=== PATIENT | female | born 1940 | race Asian ===

== ENCOUNTER → 2023-09-11 07:18 | Outpatient (REF) | payer MEDICARE, BC, SELFPAY | LOC: DHCBS MAIN 07:18 | PROVIDERS: ATTENDING PHYSICIAN Internal Medicine Cardiovascular Disease; FAMILY PHYSICIAN Family Medicine | DX: I35.0 Nonrheumatic aortic (valve) stenosis (principal) | CPT/HCPCS: 93306 ==

== ENCOUNTER → 2024-04-06 13:47 | Outpatient (REF) | payer MEDICARE, BC, SELFPAY | LOC: RCS 13:47 | PROVIDERS: ATTENDING PHYSICIAN Internal Medicine Cardiovascular Disease; FAMILY PHYSICIAN Family Medicine | DX: I35.0 Nonrheumatic aortic (valve) stenosis (principal) | CPT/HCPCS: 93306 ==

== ENCOUNTER 2025-02-15 17:33 | Emergency (ER) | payer MEDICARE, BC, SELFPAY ==
[2025-02-15 17:42] VITALS: BP 182/95
[2025-02-15 18:11] LABS: Hematocrit 42.0 % (37.0-47.0); Hemoglobin 13.6 g/dL (12.0-16.0); Mean Corp Hgb Conc. 32.4 g/dL (33.0-37.0); Mean Corpuscular Volume 88.1 fL (81.0-99.0); Nucleated Red Blood Cells % 0 %; Platelet Count 210 10^3/uL (130-400); Red Cell Dist. Width 13.4 % (11.5-14.5)
[2025-02-15 18:38] LABS: ALT (SGPT) 27 U/L (0-35); AST (SGOT) 46 U/L (14-36); Albumin 4.8 g/dl (3.5-5.0); Alkaline Phosphatase 96 U/L (38-126); Blood Urea Nitrogen 15 mg/dl (7-17); Calcium 9.0 mg/dl (8.4-10.2); Carbon Dioxide 28 mmol/L (22-30); Chloride 101 mmol/L (98-107); Glucose 97 mg/dl (70-99); Potassium 4.7 mmol/L (3.5-5.1); Sodium 134 mmol/L (135-145); Total Protein 8.3 g/dl (6.3-8.2); eGFR > 60.00
[2025-02-15 18:49] LABS: Troponin I 0.018 ng/ml
[2025-02-15] MEDS: TYLENOL 650 MG PO (21:08)
--- NOTE | 2025-02-15 21:11 | ED.GENMED ---
History of Present Illness
General
Chief Complaint: Heart Rate Problem
Time Seen by Provider: 02/15/25 19:44
History of Present Illness
History of Present Illness:
84-year-old female with history of hypertension presenting to the emergency department for palpitations. Patient reports few hours prior to arrival she was making dinner. She sat down and then started to have palpitations. She felt generally
unwell, checked her blood pressure and noted that it was elevated. She took her metoprolol and came to the hospital. Denies any significant chest pain. Denies any difficulty breathing. Denies fall or syncopal episode. Denies any dizziness, did
report some lightheadedness. Also reports some posterior headache, however notes that she has frequent headaches in the past year. Rates the headache a 3 out of 10. Denies any weakness or numbness to her extremities. Daughter does note that the
patient's is having a cardiac catheterization tomorrow so she believes that this could be causing some anxiety. Patient denies any additional acute medical complaints
Past History
Past History
ED Past Medical History: HTN, Hypercholesterolemia and Other (tia, lung ca)
ED Past Surgical History: Other (lobectomy)
Social History
Tobacco: Non-smoker
Alcohol: None
Drug: None
Personal:
Living: with family
Family History
Family History: Other (She has a brother with prostate cancer)
Phy Exam
Physical Exam
Physical Exam:
General: Well-appearing, no clinical signs of dehydration, nontoxic and in no acute distress
HEENT: protecting airway, pupils equal and reactive
Neck: appears supple
CV: Normal heart rate, regular rhythm
Resp: No accessory muscle use, no increased work of breathing, lungs clear to auscultation bilaterally
Abd: Soft and non-distended, no tenderness to palpation
Extremities: No deformities, no swelling
Neuro: alert, no focal neurologic deficit
: deferred
Rectal: deferred
Psych: Normal affect
Skin: Intact
Course
Orders/Labs/Results
Orders:
Orders
02/15/25 17:35
ECG [Electrocardiogram (*1)] Urgent
Reason for Study: Bradycardia / Tachycardia
EKG- Treatment ONCE
02/15/25 17:59
Complete Blood Count/With Diff Urgent
Comprehensive Metabolic Panel Urgent
Troponin I Urgent
02/15/25 20:18
Acetaminophen [Tylenol] 650 mg PO NOW STA
02/15/25 21:16
Troponin I Routine
02/15/25 22:06
Diphenhydramine [Benadryl] 25 mg PO NOW STA
Abnormal Lab Results
02/15/25
17:59
MCHC 32.4 L g/dL
(33.0-37.0)
Sodium 134 L mmol/L
(135-145)
AST 46 H U/L
(14-36)
Total Protein 8.3 H g/dl
(6.3-8.2)
02/15/25 17:59
02/15/25 17:59
Vital Signs
Initial and Last Documented VS:
Initial Vital Signs
Temp Pulse Resp BP Pulse Ox
98.3 F 66 20 182/95 98
02/15/25 17:42 02/15/25 17:42 02/15/25 17:42 02/15/25 17:42 02/15/25 17:42
Last Documented Vital Signs
Temp Pulse Resp BP Pulse Ox
98.3 F 54 17 153/73 98
02/15/25 17:42 02/15/25 21:32 02/15/25 21:32 02/15/25 21:32 02/15/25 21:32
MDM/Problems Addressed
MDM/Problems Addressed:
84-year-old female with history of hypertension presenting for episode of generally feeling unwell with palpitations and some tightness in the chest, with elevated blood pressure. Blood pressure on arrival is elevated, however improved without
intervention.
On exam patient is resting comfortably, no acute distress or discomfort. EKG obtained on arrival, nonischemic. Unremarkable cardiac and pulmonary exam, no increased work of breathing. Overall low suspicion for hypertensive urgency or emergency.
No arrhythmia, or again any signs of ischemia on EKG with lower suspicion for ACS. No focal neurologic deficits without concern for central neurologic process. Screening laboratory analysis sent prior to my assessment, unremarkable. Do suspect
possible component of anxiety, daughter notes stress of her father have a cardiac catheterization tomorrow. Will send second troponin, continue to monitor, repeat EKG.
22:00 - Second troponin within normal limits, repeat EKG is unchanged and blood pressure remained stable. At this time patient remains hemodynamically stable, feel stable for discharge with close and will follow-up with primary care doctor and
prescribing doctor for her blood pressure medications. Return precautions discussed and patient verbalized understanding
*Pulse Oximetry
SaO2: 98
Oxygen Mode of Delivery: Room air
Patient hypoxic: no
*EKG
Interpreted by ED Provider?: Yes
EKG Intrepretation Date: 02/15/25
EKG Intrepretation Time: 21:15
Interpretation: normal
Comparison EKG: no changes (08/18/20)
Heart Rate: 68
Rate: normal
Rhythm: sinus
Alden: normal axis
Interval: normal interval
Ischemia: no ischemia
*Critical Care Note
Total Time (30-74mins, 75-104mins- exclusive of procedures): Not Applicable
ED Attending Note
-
Portions of this chart may have been created with voice recognition software.� Occasional wrong word or��sound alike� substitutions may have occurred due to the inherent limitations of voice recognition software.
Discharge Plan
Departure
Patient Disposition: Home (Routine Discharge)
Date of Disposition: 02/15/25
Time of Disposition: 22:07
Patient with high blood pressure during this ER visit?: Yes
Condition: Good
Discharge Problem:
Palpitations, Hypertension
Instructions: Palpitations (DC), BLOOD PRESSURE
Prescriptions:
No Action
vitamin B complex [B-Complex] 1 TAB tablet
1 tab PO DAILY
salmon oil-omega-3 fatty acids 500 MG capsule
1 cap PO DAILY
calcium carbonate [Oyster Shell Calcium 500] 500 MG tablet
500 mg PO DAILY
esomeprazole magnesium [Nexium] 40 MG capsule,delayed release(DR/EC)
40 mg PO DAILYPRN PRN (Reason: indigestion/heart burn)
cholecalciferol (vitamin D3) 1,000 UNITS tablet
1,000 units PO DAILY
multivitamin with folic acid [Tab-A-Tr] 1 TABLET tablet
1 tab PO DAILY
vit C,P-Ry-yrbyr-lutein-zeaxan [PreserVision AREDS-2] 1 EACH capsule
1 ea PO DAILY
Losartan Tab
25 mg PO DAILY
ascorbic acid (vitamin C) [Vitamin C] 500 MG tablet
1,000 mg PO DAILY
lysine HCl 1,000 MG tablet
1,000 mg PO DAILY
atorvastatin [Lipitor] 10 MG tablet
10 mg PO DAILY
amlodipine 5 MG tablet
5 mg PO DAILY
metoprolol succinate 25 MG tablet extended release 24 hr
25 mg PO DAILY Qty: 30 0RF
Referrals:
Kirit Arnett DO [Family Provider, Family Practice]
Activity Restrictions/Additional Instructions:
You were seen in the emergency department for high blood pressure and palpitations
You were found to have reassuring EKG, laboratory analysis, vital signs with improvement of your blood pressure
Please follow-up closely with your primary care physician.
Return to the emergency department for any worsening of your symptoms, or any development of chest pain, difficulty breathing, abdominal pain with persistent vomiting and inability to tolerate food or liquid by mouth (concern for dehydration),
weakness, headache or confusion, fever greater than 100.4, or any additional symptoms that are concerning to you.
Thank you for choosing [facility].
Interventions
Interventions:
*Risk Screen - Suicide Last Done: 02/15/25 17:42
*Neglect/Abuse Screening Last Done: 02/15/25 17:42
ED- Cardiac Assessment Last Done: 02/15/25 21:27
ED- Pulmonary Assessment Last Done: 02/15/25 21:27
Discharge Date and Time
Print Language: AMHARIC
[2025-02-15 21:32] VITALS: BP 153/73
[2025-02-15 21:50] LABS: Troponin I 0.017 ng/ml
[2025-02-15 22:00] VITALS: BP 152/85
[2025-02-15 22:02] VITALS: BP 166/84
[2025-02-15] MEDS: BENADRYL 25 MG PO (22:12)
[2025-02-15 22:48] VITALS: BP 166/84
== END 2025-02-15 22:50 | disposition home or self-care (01) ==
LOC: EMR 17:33
PROVIDERS: Emergency Medicine; EMERGENCY PHYSICIAN Student in an Organized Health Care Education/Training Program; FAMILY PHYSICIAN Family Medicine; REFERRING PHYSICIAN Internal Medicine Cardiovascular Disease
DX: R00.2 Palpitations (principal); I10 Essential (primary) hypertension; E78.00 Pure hypercholesterolemia, unspecified; Z85.118 Personal history of other malignant neoplasm of bronchus and lung; Z86.73 Personal history of transient ischemic attack (TIA), and cerebral infarction without residual deficits
CPT/HCPCS: 99284; 80053; 84484; 85025; 93005

== ENCOUNTER → 2025-02-17 13:08 | Outpatient (REF) | payer MEDICARE, BC, SELFPAY | LOC: HWRCS 13:08 | PROVIDERS: ATTENDING PHYSICIAN Internal Medicine Cardiovascular Disease; FAMILY PHYSICIAN Family Medicine | DX: I35.0 Nonrheumatic aortic (valve) stenosis (principal); R00.2 Palpitations | CPT/HCPCS: 93306 ==

== ENCOUNTER 2025-02-19 00:28 | Emergency (ER) | payer MEDICARE, BC, SELFPAY ==
[2025-02-19 00:30] VITALS: BP 188/96
[2025-02-19 00:47] VITALS: BP 154/73
[2025-02-19 00:56] VITALS: BMI 20.1
[2025-02-19 01:00] VITALS: BP 160/74
[2025-02-19 02:27] VITALS: BP 131/67
[2025-02-19 03:00] VITALS: BP 127/63
--- NOTE | 2025-02-19 03:08 | ED.GENMED ---
History of Present Illness
<Sue Hurst MD, Resident - Last Filed: 02/19/25 06:04>
General
Chief Complaint: Heart Rate Problem
Source: patient
Time Seen by Provider: 02/19/25 03:07
History of Present Illness
History of Present Illness:
Patient is an 84-year-old woman who presents to the emergency department with complaints of irregular heartbeat since the evening. She was in her normal state of health when she suddenly started to have tenderness right before bed. She was in the
bathroom finishing brushing her teeth manage she went to her bed she started to feel 'weird.' She has a history of hypertension, hyperlipidemia, GERD, lung cancer and takes metoprolol, amlodipine, and losartan. She had her attempt to rate
her blood pressure with a home blood pressure cuff but unfortunately the blood pressure cuff did not work and there was no reading able to be obtained. Unfortunately, this further worried the patient and she felt that she may be having an acute
sewed of PE which prompted her to come to the emergency department. Her episode of heart rate lasted less than a minute or so and did not continue. There was no shortness of breath or chest pain during the irregular heartbeat. patient does not
have any nausea diarrhea or vomiting. Shortness of breath, chest tightness or patient's urinary and bowel habits are unchanged from her baseline. she took an extra dose of her 25 mg of metoprolol as she felt that her heart was racing and that she
believed her body would feel better after taking it.
Past History
<Sue Hurst MD, Resident - Last Filed: 02/19/25 06:04>
Past History
ED Past Medical History: HTN, Hypercholesterolemia and Other (tia, lung ca)
ED Past Surgical History: Other (lobectomy)
Social History
Tobacco: Non-smoker
Alcohol: None
Drug: None
Personal:
Living: with family
Family History
Family History: Other (She has a brother with prostate cancer)
Review of Systems
<Sue Hurst MD, Resident - Last Filed: 02/19/25 06:04>
Review of Systems
Constitutional: Reports other ('feels weird')
EENT: Reports no symptoms
Respiratory: Reports no symptoms
Cardiac: Reports palpitations
ABD/GI: Reports no symptoms
: Reports no symptoms
Musculoskeletal: Reports no symptoms
Skin: Reports no symptoms
Neurological: Reports no symptoms
Endocrine: Reports no symptoms
Hematologic/Lymphatic: Reports no symptoms
Psychiatric: Reports no symptoms
Phy Exam
<Sue Hurst MD, Resident - Last Filed: 02/19/25 06:04>
General Physical Exam
General Presentation: well appearing and no apparent distress
General age: appears stated age
General Skin: warm and dry
General Habitus: normal
General Mental: alert
Cardiovascular Exam
Cardiovascular Exam: regular rate/rhythm, no edema, no gallop, no JVD, no murmur, normal peripheral pulses and bradycardia
Pulmonary Exam
Pulmonary Exam: lungs clear, no respiratory distress, no rales, chest non tender, no crackles, no rhonchi, no stridor, no wheezing and no cough
Course
<Sue Hurst MD, Resident - Last Filed: 02/19/25 06:04>
Orders/Labs/Results
Orders:
Orders
02/19/25 00:32
ECG [Electrocardiogram (*1)] Urgent
Reason for Study: Palpitations
02/19/25 00:33
EKG- Treatment ONCE
02/19/25 03:58
Discharge Patient As Directed
Month Pneumococcal vaccine administered: September
Year Pneumococcal vaccine administered: 2011
Month/Year vaccine administered for [id number] flu season: February 2020
Vital Signs
Initial and Last Documented VS:
Initial Vital Signs
Temp Pulse Resp BP Pulse Ox
97.8 F 72 20 188/96 96
02/19/25 00:30 02/19/25 00:30 02/19/25 00:30 02/19/25 00:30 02/19/25 00:30
Last Documented Vital Signs
Temp Pulse Resp BP Pulse Ox
97.8 F 52 13 127/63 98
02/19/25 00:30 02/19/25 03:45 02/19/25 03:45 02/19/25 03:00 02/19/25 03:45
<Eve Lehman DO - Last Filed: 02/19/25 05:25>
Orders/Labs/Results
Orders:
Orders
02/19/25 00:32
ECG [Electrocardiogram (*1)] Urgent
Reason for Study: Palpitations
02/19/25 00:33
EKG- Treatment ONCE
02/19/25 03:58
Discharge Patient As Directed
Month Pneumococcal vaccine administered: September
Year Pneumococcal vaccine administered: 2011
Month/Year vaccine administered for [id number] flu season: February 2020
Vital Signs
Initial and Last Documented VS:
Initial Vital Signs
Temp Pulse Resp BP Pulse Ox
97.8 F 72 20 188/96 96
02/19/25 00:30 02/19/25 00:30 02/19/25 00:30 02/19/25 00:30 02/19/25 00:30
Last Documented Vital Signs
Temp Pulse Resp BP Pulse Ox
97.8 F 52 13 127/63 98
02/19/25 00:30 02/19/25 03:45 02/19/25 03:45 02/19/25 03:00 02/19/25 03:45
<Sue Hurst MD, Resident - Last Filed: 02/19/25 06:04>
*Pulse Oximetry
SaO2: 98
Oxygen Mode of Delivery: Room air
Patient hypoxic: no
*Critical Care Note
Total Time (30-74mins, 75-104mins- exclusive of procedures): 60
<Sue Hurst MD, Resident - Last Filed: 02/19/25 06:04>
Update Note
Update Note:
Problem List:
Bradycardia
'feels funny'
palpitations
Plan:
monitor and observe
EKG
chart review
Differential Diagnoses:
atrial fibrillation/flutter
hypertension
tachycardia
inappropriate self dosing of medication
anxiety
Radiology: not applicable
EKG: normal sinus rhythm, possible left atrial enlargement, borderline EKG, no significant change found from prior EKG
Labs: not applicable
Updates:
Patient is bradycardic with a heart rate in the 50s likely secondary to inappropriate metoprolol self dosage. Talked to patient about avoiding taking medications outside of instructed dosages.
discussed how sensations of atrial fibrillation/palpitations and education was provided at the bedside
recommend patient gets BP cuff checked at primary care provider
patient remained on telemetry during her stay in the emergency department and was sinus rhythm throughout. Patient remains at baseline
patient would like to be discharged at the present time. There are no barriers that would impede the patient from being safely discharged from the emergency department
ED Attending Note
<Sue Hurst MD, Resident - Last Filed: 02/19/25 06:04>
-
Portions of this chart may have been created with voice recognition software.� Occasional wrong word or��sound alike� substitutions may have occurred due to the inherent limitations of voice recognition software.
<Eve Lehman DO - Last Filed: 02/19/25 05:25>
ED Attending Note
Patient seen and examined by attending physician: Yes
I performed a history and physical exam of patient and discussed management with resident, I reviewed resident's note and agree with documented findings and plan of care.: Yes
ED Attending Note:
84-year-old woman who resides at home with her . She is history of hypertension, hyperlipidemia, GERD, remote history of lung cancer status post right lower lobe lobectomy, history of asthma. She presents with complaints of palpitations
feeling that her heart was beating somewhat rapidly tonight and overall not feeling well. Her attempted to take her blood pressure but they are automatic cuff was malfunctioning.
Thus she presents to the ED for further evaluation. Feeling improved since arrival to the ED.
Very similar complaint noted just a few days ago where she underwent unremarkable ED evaluation including unremarkable laboratory studies, unremarkable/negative serial troponins, unremarkable EKG and firer low pressure showing no evidence of arrhythmia.
Prior records revealed similar ED visits with similar complaints with unremarkable evaluation.
She does follow with cable tester, Dr. Conrad and is maintained on metoprolol 25 mg twice daily. Recent visit with Dr. Conrad was just earlier this week.
With onset of palpitations tonight she took an extra dose of metoprolol. She denies dizziness nor lightheadedness.
84-year-old woman appears her stated age, bright and alert, pleasant, appears in no acute distress. is accompanying.
Heart is regular rate and rhythm. No murmur no rub.
Lungs are clear to auscultation. Respirations are easy nonlabored.
EKG shows normal sinus rhythm, normal axis, normal intervals, no acute ST-T wave abnormalities. Similar and unchanged from previous EKG February 15.
We have continued firer low pressure showing normal sinus rhythm, now with mild sinus bradycardia but again no arrhythmia. She remains hemodynamically stable.
With recent visit with unremarkable labs, overall unremarkable EKG as well as firer low pressure, no indication to repeat laboratory studies.
Recommend she continue her current dose of metoprolol but avoid taking additional doses as this is caused an element of bradycardia however she does remain normotensive.
Encourage prompt follow-up with her cable tester for recheck.
Discharge Plan
Departure
Patient Disposition: Home (Routine Discharge)
Date of Disposition: 02/19/25
Time of Disposition: 03:58
Patient with high blood pressure during this ER visit?: Yes
Discharge Problem:
Palpitations
Instructions: Palpitations (DC), BLOOD PRESSURE
Prescriptions:
No Action
vitamin B complex [B-Complex] 1 TAB tablet
1 tab PO DAILY
salmon oil-omega-3 fatty acids 500 MG capsule
1 cap PO DAILY
calcium carbonate [Oyster Shell Calcium 500] 500 MG tablet
500 mg PO DAILY
esomeprazole magnesium [Nexium] 40 MG capsule,delayed release(DR/EC)
40 mg PO DAILYPRN PRN (Reason: indigestion/heart burn)
cholecalciferol (vitamin D3) 1,000 UNITS tablet
1,000 units PO DAILY
multivitamin with folic acid [Tab-A-Tr] 1 TABLET tablet
1 tab PO DAILY
vit C,U-Kr-auwyh-lutein-zeaxan [PreserVision AREDS-2] 1 EACH capsule
1 ea PO DAILY
Losartan Tab
25 mg PO DAILY
ascorbic acid (vitamin C) [Vitamin C] 500 MG tablet
1,000 mg PO DAILY
lysine HCl 1,000 MG tablet
1,000 mg PO DAILY
atorvastatin [Lipitor] 10 MG tablet
10 mg PO DAILY
amlodipine 5 MG tablet
5 mg PO DAILY
metoprolol succinate 25 MG tablet extended release 24 hr
25 mg PO DAILY Qty: 30 0RF
Referrals:
Kirit Arnett DO [Family Provider, Family Practice]
Interventions
Interventions:
*Risk Screen - Suicide Last Done: 02/19/25 00:30
*General Assessment Last Done: 02/19/25 00:56
*Neglect/Abuse Screening Last Done: 02/19/25 00:30
*ED- Fall Risk Assessment Last Done: 02/19/25 00:56
*ED COVID-19 Vaccine History Last Done: 02/19/25 00:56
*Nursing Disposition Last Done: 02/19/25 04:01
ED- Cardiac Assessment Last Done: 02/19/25 00:56
ED- Pulmonary Assessment Last Done: 02/19/25 00:56
Discharge Date and Time
Discharge Date/Time: 02/19/25 04:02
Print Language: INDONESIAN
== END 2025-02-19 04:02 | disposition home or self-care (01) ==
LOC: EMR 00:28
PROVIDERS: EMERGENCY PHYSICIAN Emergency Medicine; FAMILY PHYSICIAN Family Medicine
DX: R00.2 Palpitations (principal); R00.1 Bradycardia, unspecified; I10 Essential (primary) hypertension; E78.00 Pure hypercholesterolemia, unspecified; J45.909 Unspecified asthma, uncomplicated; K21.9 Gastro-esophageal reflux disease without esophagitis; Z86.73 Personal history of transient ischemic attack (TIA), and cerebral infarction without residual deficits; Z85.118 Personal history of other malignant neoplasm of bronchus and lung; Z90.2 Acquired absence of lung [part of]; Z80.42 Family history of malignant neoplasm of prostate
CPT/HCPCS: 99291; 93005

== ENCOUNTER → 2025-03-23 14:14 | Outpatient (REF) | payer MEDICARE, BC, SELFPAY | LOC: REG 14:14 | PROVIDERS: ATTENDING PHYSICIAN Family Medicine | DX: J45.30 Mild persistent asthma, uncomplicated (principal); R05.3 Chronic cough | CPT/HCPCS: 71046 ==